=== PATIENT | male | born 1935 | race Caucasian/White ===

== ENCOUNTER 2019-11-28 20:58 | Emergency (ER) | payer MEDICARE, SELFPAY ==
--- NOTE | ~2019-11-28 | CT_ITS ---
EXAMINATION: CT brain wo con DATE: 11/28/2019 22:20 INDICATION: Confusion. History of stroke. TECHNIQUE: Computed tomography (CT) of the head was performed without intravenous contrast. The dose- length product was 605.33 mGy-cm. The mA was adjusted according to patient size. Iterative reconstruc tion technique was employed. COMPARISON: CT dated 06/16/2018 FINDINGS: Generalized atrophy. There are scattered severe periventricular and subcortical white matte r changes, most likely related to small vessel ischemic disease (microangiopathy). Chronic right funmi etal infarction. Chronic left occipital infarction. No acute intracranial hemorrhage, infarction, mas s or mass effect. No ventriculomegaly or midline shift. Basilar cisterns are patent. Small mucous ret ention cyst/maxillary sinus. Mastoids are pneumatized. No depressed skull fractures. IMPRESSION: 1. No acute intracranial abnormality. 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 3: Chronic age-related findings. Reviewed, dictated and finalized at location A.
--- NOTE | 2019-11-28 21:01 | ECG_ITS ---
Measurements Intervals [place] Rate: 50 P: 67 CT: 251 QRS: 12 QRSD: 96 T: 55 QT: 383 QTc: 352 Interpretive Statements SINUS BRADYCARDIA WITH FIRST DEGREE AV BLOCK CANNOT RULE OUT SEPTAL INFARCT, AGE INDETERMINATE ABNORMAL ECG Electronically Signed On 11-29-2019 6:51:08 CDT by Toñito Salas D.O.
[2019-11-28 21:09] VITALS: BP 132/58; PULSE 50; RESP 20; TEMP 36.9; O2SAT 98
[2019-11-28 21:14] LABS: Basophils Percent Auto 0.3 % (0.2-1.2); Eosinophils Absolute Auto 0.2 K/mm3 (0-0.3); Eosinophils Percent Auto 5.6 % (0-4.4); Hematocrit 36.8 % (42.0-52.0); Immature Granulocyte Absolute 0.01 K/mm3 (0.00-0.031); Immature Granulocyte Percent A 0.3 % (0-0.5); Lymphocytes Percent Auto 25.6 % (18.3-44.2); Mean Corpuscular HGB Conc 32.6 g/dl (32-36); Mean Corpuscular Hemoglobin 29.9 pg (26-34); Mean Corpuscular Volume 91.8 fl (80-100); Mean Platelet Volume 9.1 fl (7.4-10.4); Monocytes Absolute Auto 0.4 K/mm3 (0.1-0.6); Neutrophils Absolute Auto 2.2 K/mm3 (1.3-6.7); Neutrophils Percent Auto 57.2 % (45.5-73.1); Platelet Count Result 125 k/mm3 (150-375); Red Blood Count 4.01 M/mm3 (4.6-6.20); Red Cell Distribution Width 13.4 % (11.5-14.5); White Blood Count 3.9 K/mm3 (4.5-10.0)
[2019-11-28 21:26] LABS: Alanine Aminotransferase 18 U/L (4-50); Alkaline Phosphatase 71 U/L (38-126); Aspartate Amino Transferase 22 U/L (17-59); Bilirubin,Total 0.4 mg/dL (0.2-1.3); Blood Urea Nitrogen 16 mg/dL (9-20); Calcium 8.8 mg/dL (8.4-10.2); Carbon Dioxide 28 mmol/L (22-30); Chloride 102 mmol/L (98-107); Estimated Glomerular Filt Rate 48; Glucose 120 mg/dL (75-110); Potassium 4.4 mmol/L (3.4-5.0); Sodium 139 mmol/L (137-145)
[2019-11-28 21:51] LABS: Add Urine Microscopic? YES; Appearance Urine Clear (Clear); Bacteria Urine Trace /hpf; Bilirubin Urine Negative (Negative); Blood Urine Negative (Negative); Color Urine Yellow (Yellow); Glucose Urine UA Negative (Negative); Ketones Urine Negative (Negative); Leukocyte Esterase Ur Negative LEU/UL (Negative); Mucus Urine Rare /lpf; Nitrate Urine Negative (Negative); Protein Urine Negative (Negative); RBC Urine 0-2 /hpf (0-2); Specific Grav Ur 1.017 (1.001-1.035); Urobilinogen Urine Negative mg/dL (<2.0); WBC Urine 0-3 /hpf
--- NOTE | 2019-11-28 22:45 | PC.NURSE ---
Patient's daughter verbalized patient's headache was back and patient was seeing butterflies. DR Alvaro cole.
--- NOTE | 2019-11-28 23:24 | ED.AMS ---
HPI - Altered Mental Status General Chief Complaint: Altered Mental Status Stated Complaint: headache, altered History of Present Illness HPI narrative: Patient presents with his daughter for severe headache and hallucinations. He said his hallucinations started years ago but this is the first she has heard. He lives with his and has been quite irritated and agitated towards her recently. He has had strokes in the past and she was suspecting that he was having another one. He has no headache currently, and has no physical complaint. His heart rate is slow on the EKG and monitor but his daughter says that his normal rate. The CAT scans already been done does not show any new or recent strokes, but several large previous ones. He has never seen [facility]ro psych, and did not get follow-up with his neurologist Dr. Weiss at [place] because of the Covid. They both agree he has problems with his memory. His appetite is good his bowels are moving. He does not smoke drink or do drugs. MD complaint: altered mental status and confusion Onset (ago): hour(s) Timing confirmed by: family member Severity: moderate Consistency of symptoms: waxing and waning Associated symptoms: denies other symptoms Related Data Home Medications Medication Instructions Recorded Confirmed Tirosint 50 mcg PO DAILY 06/10/19 06/10/19 amlodipine 5 mg PO DAILY 06/10/19 06/10/19 aspirin [Aspir-81] 81 mg PO EVERY OTHER DAY 06/10/19 06/10/19 calcium carbonate-vit D3-min 1 tablet PO BID 06/10/19 06/10/19 cholecalciferol (vitamin D3) 5,000 unit PO DAILY 06/10/19 06/10/19 cyanocobalamin (vitamin B-12) 100 mcg PO DAILY 06/10/19 06/10/19 losartan 50 mg PO DAILY 06/10/19 06/10/19 simvastatin 20 mg PO HS 06/10/19 06/10/19 Allergies Allergy/AdvReac Type Severity Reaction Status Date / Time Iodinated Contrast Media Allergy Intermediate Vomiting, Verified 07/29/18 11:39 HOT FLASH Review of Systems Review of Systems: Narrative: CONSTITUTIONAL: Denies fever, chills, or sweats. EYES: Denies visual changes, redness, or discharge. ENT: Denies rhinorrhea, congestion, sore throat, or otalgia. CARDIOVASCULAR: Denies chest pain, palpitations, or edema. RESPIRATORY: Denies cough or dyspnea. GASTROINTESTINAL: Denies abdominal pain, nausea, vomiting, or diarrhea. GENITOURINARY: Denies dysuria or hematuria. SKIN: Denies rash or itching. MUSCULOSKELETAL: Denies back pain, joint pain, or myalgia. NEUROLOGIC: Denies headache, numbness, or weakness. PSYCHIATRIC: He has recent hallucinations and irritability. [facility] Past Medical History Medical History Hallucinations History of stroke Social History Social History (Updated 11/28/19 @ 23:27 by Tiny John MD) Smoking status: Never smoker Alcohol intake: never Substance use: never Exam Narrative: Exam Narrative: GENERAL: Well-appearing, well-nourished, and in no acute distress. Very talkative, difficult to redirect, describing his hallucinations in detail. HEAD: Normocephalic, atraumatic. EYES: PERRLA and EOMI. ENT: Nares clear, no rhinorrhea or epistaxis. Mucous membranes moist. NECK: Supple. CHEST: Clear to auscultation. No respiratory distress. HEART: Regular rate and rhythm. No murmur heard. Normal peripheral pulses. ABDOMEN: Soft, nontender, nondistended, normal active bowel sounds. EXTREMITIES: Normal range of motion. No edema. SKIN: Warm, dry, no rash. NEURO: No focal deficits. Alert and oriented x3. PSYCH: Tangential thought. Const: General: no acute distress and alert Orientation/consciousness: patient oriented x3 Course Vital Signs Vital signs: Vital Signs Temperature 98.4 F 11/28/19 21: Pulse Rate 50 L 11/28/19 21:09 Respiratory Rate 20 11/28/19 21:09 Blood Pressure 132/58 L 11/28/19 21:09 Pulse Oximetry 98 11/28/19 21:09 Temperature 98.4 F 11/28/19 21:09 Pulse Rate 50 L 11/28/19 21:09 Respiratory Rate 20
[2019-11-28 23:47] VITALS: BP 141/62; PULSE 61; RESP 18; O2SAT 98
== END 2019-11-28 23:49 | disposition home or self-care (01) ==
PROVIDERS: Emergency Provider Emergency Medicine; PCP Family Medicine Adolescent Medicine
DX: R44.3 Hallucinations, unspecified (principal); R00.1 Bradycardia, unspecified; D61.818 Other pancytopenia; Z86.73 Personal history of transient ischemic attack (TIA), and cerebral infarction without residual deficits; Z79.82 Long term (current) use of aspirin; I44.0 Atrioventricular block, first degree; R94.31 Abnormal electrocardiogram [ECG] [EKG]
CPT/HCPCS: 36415; 70450; 80053; 81001; 85025; 93005; 99284

== ENCOUNTER → 2020-02-02 09:37 | Outpatient (CLI) | payer MEDICARE, SELFPAY ==
--- NOTE | ~2020-02-02 | DEXA_ITS ---
Bone Density Report Name: Ramirez Vega Age: 84 Sex: Male Ethnicity: White Date of : 1935 Indication: osteopenia; end stage renal disease; Referring Provider: MARIANO CASTRO Study: Bone densitometry was performed. Exam Date: February 02, 2020 Accession number: [id number] Bone Density: Region BMD T-score Z-score Classification AP Spine (L1-L4) 1.234 1.3 2.6 Normal Femoral Neck (Left) 0.649 -2.1 -0.4 Osteopenia Total Hip (Left) 0.940 -0.6 0.6 Normal Femoral Neck (Right) 0.647 -2.1 -0.4 Osteopenia Total Hip (Right) 0.831 -1.3 -0.2 Osteopenia Total Hip Mean 0.886 -1.0 0.2 Normal World Health Organization criteria for BMD impression classify patients as: Normal (T-score at or above -1.0), Osteopenia (T-score between -1.0 and -2.5), or Osteoporosis (T-score at or below -2.5). 10-year Fracture Risk(1): Major Osteoporotic Fracture 9.6% Hip Fracture 5.5% Reported Risk Factors: [place] (), Neck BMD=0.647, BMI=29.1, smoking (1) FRAX(R) Version 3.08. Fracture probability calculated for an untreated patient. Fracture probability may be lower if the patient has received treatment. Previous Exams: Region Exam Age BMD T-score BMD Change BMD Change Date g/cm2 vs Baseline vs Previous AP Spine(L1-L4) 02/02/2020 84 1.234 1.3 0.103* 0.103* 11/06/2017 82 1.132 0.4 Total Hip(Left) 02/02/2020 84 0.940 -0.6 0.038* 0.038* 11/06/2017 82 0.901 -0.9 Total Hip(Right) 02/02/2020 84 0.831 -1.3 0.011 0.011 11/06/2017 82 0.820 -1.4 *Denotes significance at 95% confidence level, LSC for AP Spine = 0.022 g/cm2, LSC for Total Hip = 0.027 g/cm2 Clinical Information Provided by Patient: Smokes Has used the following medications: Vitamin D, Calcium Has the following medical conditions: End stage renal disease Patient maximum height was 70 No regular weight bearing exercise Does not regularly consume dairy products Drinks caffeinated beverages Impression: The patient has low bone mass, based on the Left Femoral Neck T-score. The patient has an estimated ten-year risk of hip fracture of 5.5% and an estimated ten-year risk of major fracture of 9.6%, based on the WHO FRAX algorithm. The patient has risk factors, including: smoking. No significant bone loss was observed. Discussion: BONE DENSITY IS LOW AT ONE OR MORE SKELETAL SITES. THE PATIENT'S BMD AND CLINICAL RISK
== END ==
PROVIDERS: PCP Family Medicine Adolescent Medicine; Visit Provider Family Medicine Adolescent Medicine
DX: N18.6 End stage renal disease (principal); M85.852 Other specified disorders of bone density and structure, left thigh; M85.851 Other specified disorders of bone density and structure, right thigh
CPT/HCPCS: 77080

== ENCOUNTER 2020-10-03 19:58 | Inpatient (IN) | payer MEDICARE, SELFPAY ==
[2020-10-03] VITALS (12 sets, daily range): BP systolic 119–141; BP diastolic 62–82; PULSE 80–97; RESP 16–23; TEMP 36.6–37.1; O2SAT 92–99
--- NOTE | ~2020-10-03 | MR_ITS ---
EXAMINATION: MR brain/brain stem wo con DATE: 10/04/2020 12:37 INDICATION: Unresponsive. TECHNIQUE: Magnetic resonance imaging (MRI) of the brain and brainstem was performed without intraven ous contrast. Sequences included sagittal and axial T1-weighted FSE, axial diffusion-weighted FS EPI, axial T2*-weighted GRE, axial T2-weighted FLAIR Propeller, and axial T2-weighted Propeller. Apparent diffusion coefficient (ADC) maps were created. COMPARISON: Head CT 10/03/2020, brain MRI 11/12/2008 FINDINGS: There are scattered areas of nonspecific increased T2-weighted signal intensity in the cere bral white matter and gil. There is chronic encephalomalacia in right parietal lobe with old blood p roducts. There is chronic encephalomalacia in left occipital lobe with old blood products. There are small old infarcts in the cerebellum bilaterally. There is a 2.9 x 1.5 cm intraparenchymal hematoma i n left frontal lobe. There is no acute ischemic infarct or abnormal mass lesion. The ventricles are n ormal in size. There are likely changes of ocular lens replacement surgeries. There is anteroposterio r elongation of the ocular globes. There is mild mucosal thickening in the paranasal sinuses. IMPRESSION: 1. Subacute intraparenchymal hematoma in left frontal lobe, stable from 10/03/20. 2. Chronic encephalomalacia with old blood products in right parietal lobe and left occipital lobe. 3. Extensive nonspecific cerebral white matter disease and pontine disease, which likely represents c hronic small vessel ischemic disease. Reviewed, dictated and finalized at location A. IMPRESSION: 1. Subacute intraparenchymal hematoma in left frontal lobe, stable from 10/03/20 . 2. Chronic encephalomalacia with old blood products in right parietal lobe and left occipital lobe. 3. Extensive nonspecific cerebral white matter disease and pontine disease, whi ch likely represents chronic small vessel ischemic disease.
--- NOTE | ~2020-10-03 | XR_ITS ---
EXAMINATION: XR chest 1V portable EXAM DATE: 10/03/2020 21:30 INDICATION: Altered mental status, seizure activity, prod cough, hx of CVA, non verbal. TECHNIQUE: Portable AP frontal chest x-ray was obtained. FINDINGS: Cardiac monitoring device. The cardiomediastinal silhouette is prominent but magnified on t his AP technique. There is pulmonary vascular congestion. Small left pleural effusion. No confluent c onsolidation, pneumothorax or right pleural effusion suspected. There are bony degenerative changes. IMPRESSION: 1. Small left pleural effusion. 2. Pulmonary vascular congestion. Reviewed, dictated and finalized at location G.
--- NOTE | ~2020-10-03 | CT_ITS ---
EXAMINATION: CT brain wo con EXAM DATE: 10/03/2020 21:37 INDICATION: Altered mental status, confusion. TECHNIQUE: Spiral CT of the head was performed without contrast. Axial, coronal and sagittal images were reviewed. The dose-length product (DLP) for this examination was 681.00 mGy-cm. The exposure w as tailored according to patient size, and iterative reconstruction (ASIR) was used as additional dos e reduction technique. Comparison is made to prior examination from 11/28/2019. FINDINGS: There is no acute intraparenchymal hemorrhage. No evidence of intraparenchymal brain mass lesion. No evidence of acute infarction. Please note that initial head CT has limited sensitivity f or small or acute infarctions. There is old small right parietal lobe infarction unchanged. Old infarction in the left frontoparieta l region, anterior cerebral artery watershed distribution, which has developed compared to previous e xam. Some adjacent cortical laminar necrosis. There is moderate to severe periventricular and subcortical hypodensity, nonspecific but probably rel ated to small vessel ischemic disease. There is moderate prominence of the sulci and ventricles rel ated to cerebral atrophy. There is intracranial carotid arteriosclerosis. There are no extra-axial collections. There is no mass effect or midline shift. Patient has had bilateral ocular lens surge ry. Soft tissue is unremarkable. Small left maxillary sinus mucous retention cysts. IMPRESSION: 1. No acute intracranial findings. 2. Chronic age related findings. 3. Old infarctions. Reviewed, dictated and finalized at location .
[2020-10-03 20:06] LABS: Glucose Point of Care 123 (65-105)
--- NOTE | 2020-10-03 20:51 | ECG_ITS ---
Measurements Intervals [place] Rate: 92 P: 104 NV: 252 QRS: -14 QRSD: 86 T: 91 QT: 335 QTc: 414 Interpretive Statements SINUS RHYTHM WITH FIRST DEGREE AV BLOCK VENTRICULAR BIGEMINY CANNOT RULE OUT SEPTAL INFARCT, AGE INDETERMINATE BASELINE ARTIFACT- I, III, AVR, AVL, AVF, V4-V6 ABNORMAL ECG Electronically Signed On 10-04-2020 6:18:48 CDT by Toñito Salas D.O.
[2020-10-03] MEDS: LACTATED RINGERS 1,000 ML 150 ML IV CONT (21:01)
[2020-10-03 21:18] LABS: Basophils Percent Auto 0.3 % (0.2-1.2); Eosinophils Absolute Auto 0.1 K/mm3 (0-0.3); Eosinophils Percent Auto 1.7 % (0-4.4); Hematocrit 34.4 % (42.0-52.0); Hemoglobin 11.5 g/dL (14.0-18.0); Immature Granulocyte Absolute 0.03 K/mm3 (0.00-0.031); Immature Granulocyte Percent A 0.5 % (0-0.5); Lymphocytes Absolute Auto 0.46 K/mm3 (0.9-3.2); Lymphocytes Percent Auto 6.9 % (18.3-44.2); Mean Corpuscular HGB Conc 33.4 g/dl (32-36); Mean Corpuscular Volume 89.8 fl (80-100); Mean Platelet Volume 10.2 fl (7.4-10.4); Monocytes Absolute Auto 0.4 K/mm3 (0.1-0.6); Monocytes Percent Auto 6.3 % (2.6-8.5); Neutrophils Absolute Auto 5.6 K/mm3 (1.3-6.7); Neutrophils Percent Auto 84.3 % (45.5-73.1); Platelet Count Result 190 k/mm3 (150-375); Red Blood Count 3.83 M/mm3 (4.6-6.20); Red Cell Distribution Width 13.2 % (11.5-14.5); White Blood Count 6.6 K/mm3 (4.5-10.0)
[2020-10-03 21:24] LABS: Alveolar/Arterial O2 Gradient 9.5 mmHg; Base Excess ABG 1.7 mEq/l (+/-2.0); Device ROOM AIR; Fractional Inspired Oxygen 21 %; HCO3 ABG 25.5 mEq/l (22.0-26.0); Modified Allen's Test Unable to perform; Oxygen Content ABG 15.7 %vol (16.0-22.0); Oxygen Saturation ABG 97.6 % (95.0-100.0); Oxyhemoglobin 96.3 % THb (90.0-100.0); PCO2 ABG 37.5 mmHg (35.0-45.0); PO2 ABG 95.3 mmHg (80.0-100.0); PO2 FiO2 Ratio Arterial Blood 4.54 %; Site Drawn RIGHT RADIAL; Total Hemoglobin 11.5 g/dL (12.0-18.0); pH ABG 7.451 (7.350-7.450)
[2020-10-03 21:25] LABS: Add Urine Microscopic? YES; Appearance Urine Cloudy (Clear); Bacteria Urine Trace /hpf; Bilirubin Urine Negative (Negative); Blood Urine 1+ (Negative); Color Urine Yellow (Yellow); Glucose Urine UA Negative (Negative); Ketones Urine Negative (Negative); Leukocyte Esterase Ur 3+ LEU/UL (Negative); Nitrate Urine Negative (Negative); Protein Urine 3+ mg/dL (Negative); RBC Urine 51-75 /hpf (0-2); Specific Grav Ur 1.012 (1.001-1.035); Urobilinogen Urine Negative mg/dL (<2.0); WBC Urine >75 /hpf
[2020-10-03 21:29] LABS: Alanine Aminotransferase 31 U/L (4-50); Albumin Level 3.9 g/dL (3.5-5.1); Alkaline Phosphatase 82 U/L (38-126); Anion Gap 5 mmol/L (8-16); Aspartate Amino Transferase 29 U/L (17-59); Bilirubin,Total 0.2 mg/dL (0.2-1.3); Blood Urea Nitrogen 41 mg/dL (9-20); Carbon Dioxide 29 mmol/L (22-30); Chloride 101 mmol/L (98-107); Estimated Glomerular Filt Rate > 60; Glucose 132 mg/dL (75-110); Potassium 4.8 mmol/L (3.4-5.0); Sodium 135 mmol/L (137-145)
[2020-10-03] MEDS: LORazepam INJ (*CRX) 2 MG/ML VIAL (23:24)
--- NOTE | 2020-10-03 23:24 | PC.NURSE ---
2mg ativan given ivp per santosh Sanchez.
--- NOTE | 2020-10-03 23:28 | PC.NURSE ---
Patient started to have a sz at 2320, patient's daughter at the bedside. Patient maintained a patent airway. Meds given per VORB. Patient now postictal and drowsy. Patient's VSS. ERP notified of patient's status. Patient's daughter remains at bedside.
--- NOTE | 2020-10-03 23:59 | ED.GENADULT ---
HPI - General Adult General Chief complaint: Unspecified Stated complaint: seizure, unresponsive Time Seen by Provider: 10/03/20 20:21 Source: EMS Mode of arrival: EMS Limitations: altered mental status and clinical condition History of Present Illness HPI narrative: 84-year-old male Patient was brought by EMS from his home for altered mental status Apparently he is nonverbal at baseline as result of multiple strokes There was some question tonight if he may have had a seizure of some sort prior to their arrival EMS crew thought that he was drowsy with fluctuating level of consciousness and that this may have possibly been consistent with him being postictal No corroborative history available at this time Related Data Home Medications Medication Instructions Recorded Confirmed Tirosint 50 mcg PO DAILY 06/10/19 08/18/20 amlodipine 5 mg PO DAILY 06/10/19 08/18/20 calcium carbonate-vit D3-min 1 tablet PO BID 06/10/19 08/18/20 cholecalciferol (vitamin D3) 5,000 unit PO DAILY 06/10/19 08/18/20 cyanocobalamin (vitamin B-12) 100 mcg PO DAILY 06/10/19 08/18/20 losartan 50 mg PO DAILY 06/10/19 08/18/20 simvastatin 20 mg PO HS 06/10/19 08/18/20 metformin 500 mg tablet 500 mg PO BID 08/18/20 08/18/20 Allergies Allergy/AdvReac Type Severity Reaction Status Date / Time Iodinated Contrast Media Allergy Intermediate Vomiting, Verified 07/29/18 11:39 HOT FLASH Review of Systems Review of Systems: ROS unobtainable: Yes unobtainable due to medical condition and unobtainable due to mental status PMFSH Past Medical History Medical History (Updated 10/04/20 @ 01:22 by Jaguar Sanchez MD) Hallucinations History of stroke Primary osteoarthritis of right knee Surgical History Surgical History (Updated 09/06/20 @ 11:38 by Jerrica Sanderson CMA) History of arthroscopy of right knee History of tonsillectomy Social History Social History Smoking status: Never smoker Alcohol intake: never Substance use: never Gender identity (if verbalized by the patient): Male Exam Const: General: alert (does seem to be alert and looking around), awake and other (nonverbal) Limitations: altered mental status and physical limitations Other: Elderly, frail, chronic ill HENMT: Head: normal to inspection, normocephalic and atraumatic Mouth: Yes other (I do not see any injuries or bleeding from his mouth but a difficult exam) Eyes: Conjunctivae: conjunctivae normal Neck: Neck: normal visual inspection, supple and no JVD Resp: Effort & Inspection: normal respiratory effort and not labored Auscultation: no rales, no rhonchi, no wheezes and other (Equal breath sounds) Cardio: Rate: regular rate Rhythm: regular rhythm Heart sounds: no murmurs GI: GI Palp: Yes Soft to palpation, No Tenderness to palpation present (GI), No Guarding due to palpation present (GI) and Yes Other GI palpation findings present (PEG) Urinary Catheter: Urinary Catheter: patent and draining Skin: General skin exam: normal color Neuro: Other: Patient is nonverbal and tends not to understand and/or follow directions, he did give me a bit of a squeeze with the left hand Extrem: General: edema (Trace) Psych: Affect: normal affect Course Course Emergency Course: Daughter arrived and discussed with her and she provided helpful history Patient was discharged from [facility] fairly recently and had a PICC line in post discharge to complete treatment for a complicated catheter related UTI, not clear if this was a cause or an effect of his hospitalization there Additionally she is quite certain that the episode at the house was a seizure and she thought that there had been some bleeding from his mouth she had cleaned that away She noted that she would not want him to be on anticonvulsants because of concerns about excessive sedation and we discussed that many neurologists would support waiting for an abn
[2020-10-04] VITALS (7 sets, daily range): BP systolic 112–148; BP diastolic 44–78; PULSE 47–87; RESP 16–20; TEMP 35.9–36.4; O2SAT 96–99; BMI 23.9
[2020-10-04] MEDS: levETIRAcetam 1000MG/NACL100ML 1,000 MG/100 ML BAG 400 MG IVPB
--- NOTE | 2020-10-04 00:43 | PM.IMHP ---
H&P: HPI History of Present Illness Date/Time: 10/04/20 00:43 Chief Complaint: SEIZURE Narrative: THIS IS AN 84-YEAR-OLD MALE WITH PAST MEDICAL HISTORY FOR MAY SIGNIFICANT FOR MULTIPLE STROKES, CHRONIC INDWELLING EID CATHETER, HYPERTENSION, TYPE 2 DIABETES. PATIENT HAD A RECENT HOSPITALIZATION AT [facility] WHERE HE WAS TREATED FOR A URINARY TRACT INFECTION PATIENT WENT HOME WITH A PICC LINE AND CONTINUE ANTIBIOTIC TREATMENT ACCORDING TO DAUGHTER. DAUGHTER WITNESSED A SEIZURE EPISODE AT HOME CALL EMS UPON EMS ARRIVAL PATIENT WAS NOT SEIZING EMS DID NOT RECUR ANY ABNORMAL EVENTS. UPON ARRIVAL TO EMERGENCY ROOM PATIENT WAS AWAKE AND ALERT. DAUGHTER STATES THAT HE HAS NOT BEEN HIS USUAL FOR THE LAST FEW DAYS OR SO. PATIENT IS UNABLE TO GIVE ANY HISTORY HE IS POST ICTAL. PRELIMINARY WORKUP WAS SIGNIFICANT FOR URINARY ANALYSIS WITH HIGH COUNT OF WBC'S. WHILE IN THE EMERGENCY ROOM THE PATIENT HAD A SEIZURE STARTED OUT A TWITCH AND TURNED INTO A TONIC CLONIC SEIZURE PATIENT RECEIVED ATIVAN 1 MG WHICH ABORTED IT. AT THE TIME OF MY VISIT PATIENT IS POSTICTAL. A CT OF THE HEAD WAS SIGNIFICANT FOR OLD MULTIPLE CHRONIC INFARCTS AND A CHEST X-RAY FOR EPIC SMALL PLEURAL EFFUSION. PATIENT WAS LOADED WITH KEPPRA IN THE EMERGENCY ROOM. Review of Systems Review of Systems: ROS unobtainable: Yes unobtainable due to medical condition (POSTICTAL STAGE) PMFSH Past Medical History Medical History (Updated 10/04/20 @ 01:17 by Miladis Nunes MD) Hallucinations History of stroke Primary osteoarthritis of right knee Surgical History Surgical History (Updated 09/06/20 @ 11:38 by Jerrica Sanderson CMA) History of arthroscopy of right knee History of tonsillectomy Social History Social History Smoking status: Never smoker Alcohol intake: never Substance use: never Gender identity (if verbalized by the patient): Male Meds Home Medications and Allergies Home Medications Medication Instructions Recorded Confirmed Type Tirosint 50 mcg PO DAILY 06/10/19 08/18/20 History amlodipine 5 mg PO DAILY 06/10/19 08/18/20 History calcium carbonate-vit D3-min 1 tablet PO BID 06/10/19 08/18/20 History cholecalciferol (vitamin D3) 5,000 unit PO DAILY 06/10/19 08/18/20 History cyanocobalamin (vitamin B-12) 100 mcg PO DAILY 06/10/19 08/18/20 History losartan 50 mg PO DAILY 06/10/19 08/18/20 History simvastatin 20 mg PO HS 06/10/19 08/18/20 History metformin 500 mg tablet 500 mg PO BID 08/18/20 08/18/20 History Allergies Allergy/AdvReac Type Severity Reaction Status Date / Time Iodinated Contrast Media Allergy Intermediate Vomiting, Verified 07/29/18 11:39 HOT FLASH Vital Signs Vital Signs - 24 hr 10/03/20 19:59 10/03/20 20:08 10/03/20 20:24 Temperature 98.8 F Pulse Rate 97 81 Respiratory Rate 19 17 Blood Pressure 141/82 H Pulse Oximetry 94 94 92 10/03/20 20:30 10/03/20 20:31 10/03/20 20:45 Temperature Pulse Rate 80 96 80 Respiratory Rate 18 18 16 Blood Pressure 119/74 Pulse Oximetry 93 93 94 10/03/20 21:41 10/03/20 21:45 10/03/20 22:00 Temperature Pulse Rate 92 Respiratory Rate 16 Blood Pressure Pulse Oximetry 99 97 95 10/03/20 22:08 10/03/20 23:25 10/03/20 23:45 Temperature 97.9 F Pulse Rate 83 Respiratory Rate 23 H Blood Pressure 139/62 Pulse Oximetry 98 98 10/04/20 00:29 Temperature Pulse Rate 87 Respiratory Rate 20 Blood Pressure 115/72 Pulse Oximetry 98 Exam Narrative: Exam Narrative: PATIENT IS LAYING IN GURNEY IN POSTICTAL STAGE Const: General: comfortable, no acute distress, well developed and other (POSTICTAL) Nutritional Appearance: average body habitus Orientation/consciousness: Other orientation findings (POST ICTAL) HENMT: Head: normal to inspection, normocephalic and atraumatic Ears: hearing grossly normal bilaterally General nose exam: Normal external nose present Fac
--- NOTE | 2020-10-04 00:59 | PC.NURSE ---
ed techs in room at this time turning pt, checking for BM.
--- NOTE | 2020-10-04 01:50 | PC.NURSE ---
pt daughter (POA) refusing for us to place new price cath. continuing price that long term placed in pt. aware.
--- NOTE | 2020-10-04 02:19 | PC.NURSE ---
[facility] just called to get more information about pt. they state they will call when they get a bed.
[2020-10-04] MEDS: LACTATED RINGERS 1,000 ML 150 ML IV CONT (03:20)
--- NOTE | 2020-10-04 03:21 | ADMGEN ---
This patient, Ramirez Vega, was admitted to Medical Room 343-01. Patient/family oriented to hospital policies and general routines including ID bracelet, bed and alarms, visiting hours, pain management, procedures, bathroom and other care routines, personal items, smoking policy, room service/diet, and visiting hours. Information on how to activate the Rapid Response Team has been discussed. Patient/Family are encouraged to report perceived risks to care and to ask questions if they do not understand what they are told or what they should do.
[2020-10-04 07:03] LABS: Glucose Point of Care 121 (65-105)
[2020-10-04] MEDS: LEVOTHYROXINE SODIUM 50 MCG TABLET FEED TUBE (09:19)
[2020-10-04] MEDS: metFORMIN HCL 500 MG TABLET 1000 MG FEED TUBE (09:19)
[2020-10-04] MEDS: FAMOTIDINE 20 MG TABLET FEED TUBE (09:19)
[2020-10-04] MEDS: ACIDOPHILUS/BULGARICUS CHEWABLE TABLET 1 TABLET PO (09:19)
[2020-10-04] MEDS: ZINC OXIDE 20% OINT 30 GM TUBE 1 APPLIC TOPICAL (09:19)
[2020-10-04] MEDS: NEOMYCIN/POLYMYXIN/BACITRACIN OPHTH OINTMENT 3.5 GM TUBE 1 APPLIC EACH EYE (09:20)
[2020-10-04 09:30] LABS: Basophils Percent Auto 0.5 % (0.2-1.2); Eosinophils Absolute Auto 0.1 K/mm3 (0-0.3); Eosinophils Percent Auto 0.9 % (0-4.4); Hematocrit 31.8 % (42.0-52.0); Hemoglobin 10.5 g/dL (14.0-18.0); Immature Granulocyte Absolute 0.02 K/mm3 (0.00-0.031); Immature Granulocyte Percent A 0.3 % (0-0.5); Lymphocytes Absolute Auto 0.69 K/mm3 (0.9-3.2); Lymphocytes Percent Auto 10.7 % (18.3-44.2); Mean Corpuscular Hemoglobin 29.9 pg (26-34); Mean Corpuscular Volume 90.6 fl (80-100); Mean Platelet Volume 10.4 fl (7.4-10.4); Monocytes Absolute Auto 0.7 K/mm3 (0.1-0.6); Monocytes Percent Auto 10.9 % (2.6-8.5); Neutrophils Absolute Auto 4.9 K/mm3 (1.3-6.7); Neutrophils Percent Auto 76.7 % (45.5-73.1); Platelet Count Result 179 k/mm3 (150-375); Red Blood Count 3.51 M/mm3 (4.6-6.20); Red Cell Distribution Width 13.3 % (11.5-14.5); White Blood Count 6.4 K/mm3 (4.5-10.0)
[2020-10-04 09:40] LABS: Anion Gap 4 mmol/L (8-16); Blood Urea Nitrogen 33 mg/dL (9-20); Calcium 9.4 mg/dL (8.4-10.2); Carbon Dioxide 30 mmol/L (22-30); Chloride 103 mmol/L (98-107); Estimated CRCL calculation 60 ml/min; Estimated Glomerular Filt Rate > 60; Glucose 106 mg/dL (75-110); Potassium 4.2 mmol/L (3.4-5.0); Sodium 137 mmol/L (137-145)
[2020-10-04] MEDS: LACTATED RINGERS 1,000 ML 80 ML IV CONT (10:10)
--- NOTE | 2020-10-04 10:16 | PM.IMPN ---
Progress Note: A&P Assessment and Plan (1) Urinary tract infection: Code(s): N39.0 - Urinary tract infection, site not specified Status: Acute Assessment and Plan: Patient was recently at [facility] with septicemia from Pseudomonas and Enterobacter UTI. (2) Seizure: Code(s): R56.9 - Unspecified convulsions Status: Acute Assessment and Plan: LOADED WITH [facility] (3) Altered mental status: Code(s): R41.82 - Altered mental status, unspecified Status: Acute Assessment and Plan: LIKELY SECONDARY TO URINARY TRACT INFECTION AND SEIZURE DISORDER SUPPORTIVE CARE FALL PRECAUTION NEUROCHECKS (4) CVA (cerebral vascular accident): Code(s): I63.9 - Cerebral infarction, unspecified Status: Acute Assessment and Plan: PATIENT WITH HISTORY OF MULTIPLE STROKES IN THE PAST CT HEAD REVIEWED (5) Chronic indwelling Muñiz catheter: Code(s): Z97.8 - Presence of other specified devices Status: Acute Assessment and Plan: CATHETER CARE (6) HTN (hypertension): Code(s): I10 - Essential (primary) hypertension Status: Acute Assessment and Plan: CONTINUE HOME MEDS CONTINUE TO MONITOR (7) T2DM (type 2 diabetes mellitus): Code(s): E11.9 - Type 2 diabetes mellitus without complications Status: Acute Assessment and Plan: ACCU-CHEKS AC AND HS HOLDING METFORMIN INSULIN SLIDING SCALE NEEDED 1800 CALORIE RESTRICTED DIET CARB CONSISTENT Time Spent With Patient Time with patient: 25 - 35 minutes Subjective Date/time seen: 10/04/20 10:16 Interval history: Date of service 10/04/2020: Patient is a poor historian secondary to acute altered mental status versus chronic due to multiple strokes in the past. I talked to the patient's daughter, Lorin, that the patient had a large stroke May 24, 2020 and was at [facility]. After the stroke the patient has had a G-tube in place for feedings will with Glucerna 1.5 300 ml 4x per day, at 8a/12p/4p/8p and 200 mL NS flush before and after feedings. She states the patient can still eat by mouth. While Hospitalized in May, the patient had a stroke and was started on Keppra. The family states Keppra caused the patient to be overly sedated and they asked to discontinue the Keppra at that time. The patient was not discharged on any anti seizure medications. Patient went to [facility] and was discharged home on 06/29/2020. The patient was just recently back at [facility] with septicemia from a urinary tract infection from his chronic indwelling Muñiz catheter that grew Pseudomonas and Enterobacter. The patient was placed on IV Pip/Kike 4.5 g IV q6hrs and discharged home with a PICC line in place. The patient has since been off antibiotics and had the PICC line removed. The patient had been doing well until the last few days when has not been his usual self. The patient then had a seizure that was witnessed by the daughter and EMS was called and brought him to our emergency room. The patient had a another witnessed seizure in the ER which lasted 2-3 minutes and had resolved by the time IV Ativan was given. The neurologist recommended starting on IV Keppra q.12, but the patients family refused him being on Keppra due to history of over sedation from the medication. They would like the patient transferred to [facility] as soon as hospital since this is were all of his care has been. We are waiting for a bed at [facility] at this time and will transfer once it is available. Review of Systems Review of Systems: ROS unobtainable: Yes unobtainable due to medical condition and unobtainable due to mental status Exam Narrative: Exam Narrative: General: 84-year-old man laying in bed with his neck turned to left side, with mouth open and eyes closed. Not moving his extremities. Appears comfortable. In no acute distress. HEENT: Normocephalic, atraumatic. Mouth opened, visualized dry blood on tip of
[2020-10-04 12:16] LABS: Glucose Point of Care 132 (65-105)
--- NOTE | 2020-10-04 13:48 | PM.TDS ---
Transfer Discharge Sum: Prov Provider Date of admission: 10/04/20 01:26 Primary care physician: Conor Suarez MD Admitting clinician: Miladis Nunes MD Consults: 10/04/20 Consult to Dietitian Routine Reason for Consult:: Talked to Margaret- Tube feedings- Glucerna 10/04/20 01:28 Consult to Physician Routine Comment: Consulting Provider: Eric Jean Reason for consultation: seizure Has provider been notified: Yes Receiving physician/facility: [facility] set up by ER physician, unsure of accepting physician DS: Admitting Diagnosis Admitting Diagnosis Admitting Diagnosis: Seizure DS: Discharge Diagnosis Discharge Diagnosis (1) Urinary tract infection: Code(s): N39.0 - Urinary tract infection, site not specified Status: Acute (2) Seizure: Code(s): R56.9 - Unspecified convulsions Status: Acute (3) Altered mental status: Code(s): R41.82 - Altered mental status, unspecified Status: Acute (4) CVA (cerebral vascular accident): Code(s): I63.9 - Cerebral infarction, unspecified Status: Acute Assessment and Plan: New Subacute L frontal lobe intraparenchymal hematoma (5) Chronic indwelling Muñiz catheter: Code(s): Z97.8 - Presence of other specified devices Status: Acute (6) HTN (hypertension): Code(s): I10 - Essential (primary) hypertension Status: Acute (7) T2DM (type 2 diabetes mellitus): Code(s): E11.9 - Type 2 diabetes mellitus without complications Status: Acute Transfer Discharge Sum: Med Medications Active and Home Medications: Home Medications amlodipine 10 mg PO HS 06/10/19 [History Confirmed 10/04/20] calcium carbonate-vit D3-min 1 tablet PO BID 06/10/19 [History Confirmed 10/04/20] simvastatin 20 mg FEEDING TUBE HS 06/10/19 [History Confirmed 10/04/20] metformin 500 mg tablet 1,000 mg FEEDING TUBE BID 08/18/20 [History Confirmed 10/04/20] L. gasseri-B. bifidum-B longum 1 cap PO DAILY 10/04/20 [History Confirmed 10/04/20] cyanocobalamin (vitamin B-12) [Vitamin B-12] 1,000 mcg FEEDING TUBE HS 10/04/20 [History Confirmed 10/04/20] famotidine [Pepcid] 20 mg PO BID 10/04/20 [History Confirmed 10/04/20] levothyroxine 50 mcg FEEDING TUBE DAILY 10/04/20 [History Confirmed 10/04/20] menthol-zinc oxide [Calmoseptine] 1 applic TOPICAL DAILY 10/04/20 [History Confirmed 10/04/20] [id number]-[id number] [Neosporin (kzk-ihk-ikaik)] 1 applic OPHTHALMIC (EYE) DAILY 10/04/20 [History Confirmed 10/04/20] Active Medications Albuterol (Albuterol Sulfate Neb 2.5 Mg/0.5 Ml Inh) 5 mg INHALATION Q6HRT PRN PRN Reason: Dyspnea Amlodipine Besylate (Amlodipine Besylate 5 Mg Tablet) 10 mg FEED TUBE [facility] Calcium Carbonate (Calcium/Vitamin D 500 Mg Tablet) 500 mg PO BID [facility] Stop: 11/03/20 09:01 Last Admin: 10/04/20 09:20 Dose: 500 mg Documented by: Cyanocobalamin (Cyanocobalamin 1,000 Mcg Tablet) 1,000 mcg FEED TUBE [facility] Famotidine (Famotidine 20 Mg Tablet) 20 mg FEED TUBE BID [facility] Last Admin: 10/04/20 09:19 Dose: 20 mg Documented by: Lactated Ringer's (Lr - Lactated Ringers Iv) 1,000 mls @ 80 mls/hr IV CONT .[id number] [facility] Last Infusion: 10/04/20 11:10 Dose: 80 mls/hr Documented by: Piperacillin Sod/Tazobactam Sod (Zosyn 4.5 Gm/D5w 100 Ml) 4.5 gm in 100 mls @ 200 mls/hr IVPB Q6HR [facility] Phenytoin Sodium 500 mg/ (Sodium Chloride) 110 mls @ 360 mls/hr IVPB Q12HR [facility] Last Infusion: 10/04/20 10:43 Dose: Infused Documented by: Lactobacillus Acidophilus (Acidophilus/Bulgaricus Chewable Tablet) 1 tablet PO DAILY [facility] Last Admin: 10/04/20 09:19 Dose: 1 tablet Documented by: Levothyroxine Sodium (Levothyroxine Sodium 50 Mcg Tablet) 50 mcg FEED TUBE DAILY@0630 [facility] Last Admin: 10/04/20 09:19 Dose: 50 mcg Documented by: Lorazepam (Lorazepam Inj (*Crx) 2 Mg/Ml Vial) 1 mg IV PUSH Q6H PRN PRN Reason: Anxiety/seizure Metformin HCl (Metformin Hcl 500 Mg Tablet) 1,000 mg FEED TUBE BIDWM [facility] Last Admi
== END 2020-10-04 16:05 | disposition short-term general hospital (02) | DRG 689 ==
LOC: ANHED 10-04 01:50 → ANH3MED 10-04 07:21
PROVIDERS: Admitting Provider Internal Medicine; Emergency Provider Emergency Medicine; PCP Family Medicine Adolescent Medicine; Visit Provider Physician Assistant
DX: N39.0 Urinary tract infection, site not specified (principal); I63.9 Cerebral infarction, unspecified; R56.9 Unspecified convulsions; R41.82 Altered mental status, unspecified; M17.11 Unilateral primary osteoarthritis, right knee; I10 Essential (primary) hypertension; E11.9 Type 2 diabetes mellitus without complications; Z79.84 Long term (current) use of oral hypoglycemic drugs; Z79.899 Other long term (current) drug therapy; Z86.73 Personal history of transient ischemic attack (TIA), and cerebral infarction without residual deficits; Z97.8 Presence of other specified devices
CPT/HCPCS: 36415; 36600; 70450; 70551; 71045; 80048; 80053; 81001; 82805; 82948; 85025; 87040; 87077; 87086; 87088; 87186; 93005; 96361; 96365; 96375; 99285; A9270; J0696; J1165; J1953; J2060; J2543; J7120